=== PATIENT | male | born 1985 | race Caucasian/White ===

== ENCOUNTER 2020-02-06 09:52 | Outpatient (REF) | payer OTHER, SELFPAY ==
--- NOTE | 2020-02-06 09:58 | XR_ITS ---
EXAMINATION: XR KNEE, LEFT CLINICAL INFORMATION: Left knee pain COMPARISON: None TECHNIQUE: Four views of the left knee. FINDINGS: There are postsurgical changes consistent with prior ACL repair. There is tricompartment osteoarthritis with mild joint narrowing medial compartment and marginal osteophytes femoral condyles and tibial plateau and posterior patella. There is a moderate suprapatellar effusion. Spurring at the anterior tibial tuberosity is also noted. The deep infrapatellar recess is preserved. There is no bony destructive process. No erosive changes or chondrocalcinosis. XR/XR knee LT 3V IMPRESSION: 1. Tricompartment osteoarthritis with moderate suprapatellar effusion. 2. Prior ACL repair.
== END 2020-02-06 09:53 | disposition home or self-care (01) ==
LOC: HO.XRAY 09:52
PROVIDERS: Visit Provider Family Medicine
DX: M25.462 Effusion, left knee (principal); M25.562 Pain in left knee
CPT/HCPCS: 73562